=== PATIENT | female | born 1955 | race African-American/Black ===

== ENCOUNTER 2019-10-26 15:15 | Emergency (ER) | payer BC ==
[~2019-10-26] VITALS: Ht 172.7 cm; Wt 76.2 kg
[2019-10-26] MEDS ORDERED: IBUPROFEN 600 MG TABLET ONE (16:15)
[2019-10-26] MEDS: IBUPROFEN 600 MG TABLET PO ONE (16:19)
--- NOTE | 2019-10-26 16:20 | NUR ---
PATIENT WAS SEEN BY . XRAYS DONE. SPLINT APPLIED BY Eva HIDALGO LVN. MED GIVEN ORDERED. DC AND FOLLOW UP INSTRUCTIONS GIVEN AND EXPLAINED TO PATIENT WHO STATES SHE UNDERSTANDS ALL INSTRUCTIONS.
== END 2019-10-26 16:24 | disposition home or self-care (01) ==
LOC: ER 15:15
DX: S63.501A Unspecified sprain of right wrist, initial encounter (principal); I48.91 Unspecified atrial fibrillation; Z88.8 Allergy status to other drugs, medicaments and biological substances; Z88.5 Allergy status to narcotic agent; W05.1XXA Fall from non-moving nonmotorized scooter, initial encounter; Y93.89 Activity, other specified; Y92.89 Other specified places as the place of occurrence of the external cause; Y99.8 Other external cause status
CPT/HCPCS: 73090; A4663